=== PATIENT | female | born 1960 | race Caucasian/White ===

== ENCOUNTER → 2017-01-11 | Outpatient (CLI) | payer OTHER ==
--- NOTE | ~2017-01-11 | CR61 ---
[facility] A Service of [facility] RADIOLOGY TEXT RESULTS PATIENT: ADRIAN OROZCO LOCATION: [facility] : 60 UNIT #: [id number] AGE: [address]: Eulalio Claire Jr SEX: F ORDER DR: [id number] [facility] [address] [place], [place] [address] [id number] O MR#: [id number] Acc #: [id number] NAME: ADRIAN OROZCO : 1960 SEX: F STUDY DATE/TIME: 01/11/2017 18:32 UNIT: [facility] ROOM: STUDY DESCRIPTION: CR Cervical Spine Min 5 Views Attending Physician: Eulalio Claire M.D. Ordering Physician: Physician Non-Staff Primary Care Physician: [facility] IMAGING REPORT This report is preliminary unless electronic signature is present EXAM Cervical spine series, 01/11/17 HISTORY Neck pain. 56-year-old white female withy persistent neck pain, rule out spine disease. Posterior neck pain that radiates to left shoulder, numbness in left arm. Duration 6 years. No known injury. FINDINGS AP, lateral, bilateral oblique submentovertex and open mouth odontoid views of the cervical spine are presented. Alignment in frontal projection normal. In the lateral projection there is reversal of the normal cervical lordosis centered at the C5 level. Approximately 1 mm anterolisthesis C2 on C3, C3 on C4. Approximately 2 mm anterolisthesis C4 on C5. Minimal perhaps 1 mm retrolisthesis C6 on C7. I favor that these changes in alignment are secondary to disc and facet degenerative changes. If there is concern for ligamentous laxity, additional views with voluntary flexion and extension could be pursued. Vertebral body heights are normal. There is mbcl-[id number] narrowing of the intervertebral disc spaces at C5-C6, C6-C7. Multilevel small anterior osteophytes. Probable posterior osteophytes at C6-C7. Uixb-[id number] facet degenerative changes at multiple levels. Spinal canal and neural foraminal contents would be further evaluated with MRI if patient is a candidate or with CT. C1-C2 relationship normal. Odontoid process intact. Prevertebral soft tissues unremarkable. Lung apices clear. Dictated by... Kei Liu M.D. THIS IS AN ELECTRONICALLY VERIFIED REPORT [facility] A Service of [facility] RADIOLOGY TEXT RESULTS PATIENT: ADRIAN OROZCO LOCATION: [facility] : 60 UNIT #: [id number] AGE: [address]: Eulalio Claire Jr SEX: F ORDER DR: Kei Liu M.D. at 01/12/2017 9:09 AM ETHAN/guanako TD: 01/12/2017 08:25 JOB #: [id number] MEDICAL IMAGING REPORT Page 1 of 1 COPY
== END | disposition home or self-care (01) ==
LOC: CRAD 18:12
DX: M54.2 Cervicalgia (principal)
CPT/HCPCS: 72050